=== PATIENT | female | born 1965 | race Caucasian/White ===

== ENCOUNTER 2018-02-07 15:31 | Emergency (ER) | payer OTHER ==
[~2018-02-07] VITALS: Ht 175.3 cm; Wt 136.1 kg
[~2018-02-07 15:31] MED LIST: CALC-385 PO; CIPR500T78 PO; FERR256T PO; GLIM2TAB PO; HYDR-3714 PO; METF-380 PO; METR500T PO; MULT-974 PO; OMEG1CAP51 PO; OMEP40CA36 PO; ONDA8TAB13 PO; TRAM-21 PO; VALS1TAB80 PO
--- OUTSIDE RECORDS SUMMARY | 2018-02-07 15:36 | XMS REPORT ---
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 Active 055112568 Problem PTSD (post-traumatic stress disorder) F43.10 Active 55052000 Problem Social anxiety disorder F40.10 Active 97432475 Problem Major depressive disorder, recurrent episode, moderate F33.1 Active 680670104 Problem Dysthymia F34.1 Active 30067140 Problem Moderate episode of recurrent major depressive disorder F33.1 Active 478378149 Problem Attention deficit disorder (ADD) in adult F98.8 Active 202211105 ALLERGIES Substance Reaction Event Type Date Status Naproxen hives Drug Allergy Jul, Active Ibuprofen hives Drug Allergy Jul, Active Aspirin hives Drug Allergy Jul, Active ENCOUNTERS Encounter Location Date Diagnosis [facility] [id number] [address] Jan, [facility] [address], [place] [address] December, Right elbow pain M25.521 [facility] [address], [place] [address] December, [facility] [id number] [place] [address] December, Right elbow pain M25.521 [facility] [address], [place] [address] December, Pneumonia of right lower lobe due to infectious organism J18.1 [facility] [address] [place] [address] December, Viral upper respiratory tract infection J06.9 [facility] [address] [place] [address] December, BMI 45.0-49.9, adult Z68.42 ; Social anxiety disorder F40.10 ; PTSD (post-traumatic stress disorder) F43.10 and Moderate episode of recurrent major depressive disorder F33.1 [facility] [id number] [place] [address] Oct, Social anxiety disorder F40.10 ; PTSD (post-traumatic stress disorder) F43.10 ; Moderate episode of recurrent major depressive disorder F33.1 and BMI 40.0-44.9, adult Z68.41 [facility] [id number] [place] [address] Oct, [facility] [id number] [place] [address] Oct, BMI 40.0-44.9, adult Z68.41 ; Dermatofibroma D23.9 and Actinic keratosis L57.0 [facility] [address] [place] [address] Oct, Attention deficit disorder (ADD) in adult F98.8 and Major depressive disorder, recurrent episode, moderate F33.1 [facility] [address] [place] [address] Oct, Social anxiety disorder F40.10 ; PTSD (post-traumatic stress disorder) F43.10 ; Moderate episode of recurrent major depressive disorder F33.1 and BMI 40.0-44.9, adult Z68.41 [facility] [address] [place] [address] Oct, Attention deficit disorder (ADD) in adult F98.8 and Major depressive disorder, recurrent episode, moderate F33.1 [place], [place] [address] Aug, [place] [id number] [place] [address] Aug, Dysthymia F34.1 ; BMI 40.0-44.9, adult Z68.41 and Acute non- recurrent maxillary sinusitis J01.00 [facility] [id number] [place] [address] 17 Jul, 2017 Cough R05 and Acute ethmoidal sinusitis, recurrence not specified J01.20 [place] [id number] [place] [address] Jul, Dysthymia F34.1 [place] [address] [place] [address] Jul, [place] [id number] [place] [address] Mar, Dysthymia F34.1 ; Primary osteoarthritis, right ankle and foot M19.071 and Secondary osteoarthritis, 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 IMMUNIZATIONS No Known Immunizations SOCIAL HISTORY Never Assessed REASON FOR VISIT Headache, chest congestion, productive cough, chills/fever started about [facility] days [facility] Activity Details Follow Up prn Reason: VITAL SIGNS Height 70 in 2017-08-16 Weight 305.2 lbs 2017-08-16 Temperature 97.1 degrees Fahrenheit 2017-08-16 Heart Rate 72 bpm 2017-08-16 Respiratory Rate 20 2017-08-16 BMI 43.79 kg/m2 2017-08-16 Blood pressure systolic 120 mmHg 2017-08-16 Blood pressure diastolic 80 mmHg 2017-08-16 MEDICATIONS Medication Instructions Dosage Frequency Start Date End Date Duration Status Fluoxetine HCl 20 mg Orally Once a day 1 tablet in the morning 24h Mar, 90 days Active Zithromax Z-Ashu 250 MG Orally Once a day 2 tablets on the first day, then 1 tablet daily for 4 days 24h Jul, Jul, 5 day(s) Active Fluoxetine HCl 20 Orally Once a day 1 tablet in the morning 24h 30 Active Tramadol HCl 50 mg Orally every 6 hrs 1-2 tablet as needed 6h Active Omeprazole 20 MG Orally Once a day 1 capsule 24h Active ProAir HFA 108 (90 Base) MCG/ACT Inhalation every 6 hrs 2 puffs as needed 6h Jul, Active RESULTS Name Result Date Reference Range INFLUENZA A & B (IN HOUSE) INFLUENZA A neg INFLUENZA B neg Control pos Lot # [id number] Exp date 03/12/19 PROCEDURES Procedure Date Ordered Result Body Site INFLUENZA ASSAY W/OPTIC Aug 16, 2017 INSTRUCTIONS MEDICATIONS ADMINISTERED No Known Medications MEDICAL (GENERAL) HISTORY Type Description Date Medical History depression Medical History Dr. 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
--- OUTSIDE RECORDS SUMMARY | 2018-02-07 15:36 | XMS REPORT ---
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 Active 502447470 Problem PTSD (post-traumatic stress disorder) F43.10 Active 27974028 Problem Social anxiety disorder F40.10 Active 20478621 Problem Major depressive disorder, recurrent episode, moderate F33.1 Active 803423356 Problem Dysthymia F34.1 Active 03734774 Problem Moderate episode of recurrent major depressive disorder F33.1 Active 793029880 Problem Attention deficit disorder (ADD) in adult F98.8 Active 712826069 ALLERGIES Substance Reaction Event Type Date Status Naproxen hives Drug Allergy Mar, Active Ibuprofen hives Drug Allergy Mar, Active Aspirin hives Drug Allergy Mar, Active ENCOUNTERS Encounter Location Date Diagnosis [id number] [facility] [id number] [address] December, [facility] [place] [id number], [place] [address] Oct, Social anxiety disorder F40.10 ; PTSD (post-traumatic stress disorder) F43.10 ; Moderate episode of recurrent major depressive disorder F33.1 and BMI 40.0-44.9, adult Z68.41 [facility] [place] [id number], [place] [address] Oct, [facility] [place] [id number], [place] [address] Oct, BMI 40.0-44.9, adult Z68.41 ; Dermatofibroma D23.9 and Actinic keratosis L57.0 [facility] [place] [id number] [place] [address] 02 Oct, 2017 Attention deficit disorder (ADD) in adult F98.8 and Major depressive disorder, recurrent episode, moderate F33.1 [place] [address] [address] Oct, Social anxiety disorder F40.10 ; PTSD (post-traumatic stress disorder) F43.10 ; Moderate episode of recurrent major depressive disorder F33.1 and BMI 40.0-44.9, adult Z68.41 [place] [address] 12 Oct, 2017 Attention deficit disorder (ADD) in adult F98.8 and Major depressive disorder, recurrent episode, moderate F33.1 [place] [address] [address] 04 Aug, 2017 [place] [id number] [place] [address] 02 Aug, 2017 Dysthymia F34.1 ; BMI 40.0-44.9, adult Z68.41 and Acute non- recurrent maxillary sinusitis J01.00 [facility] [id number] [place] [address] 17 Jul, 2017 Cough R05 and Acute ethmoidal sinusitis, recurrence not specified J01.20 [facility] [place] [id number] [place] [address] 13 Jul, 2017 Dysthymia F34.1 [facility] [place] [address] [address] Jul, [place] [id number] [place] [address] Mar, Dysthymia F34.1 ; Primary osteoarthritis, right ankle and foot M19.071 and Secondary osteoarthritis, 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 Chung's office---Rachel, would like to talk about depression medications PLAN OF CARE Activity Details Follow Up 4 Weeks Reason: VITAL SIGNS Height 70 in 2017-04-28 Weight 302 lbs 2017-04-28 Temperature 98.4 degrees Fahrenheit 2017-04-28 Heart Rate 90 bpm 2017-04-28 Respiratory Rate 20 2017-04-28 BMI 43.33 kg/m2 2017-04-28 Blood pressure systolic 110 mmHg 2017-04-28 Blood pressure diastolic 80 mmHg 2017-04-28 MEDICATIONS Medication Instructions Dosage Frequency Start Date End Date Duration Status Omeprazole 20 MG Orally Once a day 1 capsule 24h Active Fluoxetine HCl 20 mg Orally Once a day 1 tablet in the morning 24h Mar, 30 day(s) Active Tramadol HCl 50 mg Orally every 6 hrs 1-2 tablet as needed 6h Active RESULTS No Results PROCEDURES No Known procedures INSTRUCTIONS MEDICATIONS ADMINISTERED No Known Medications MEDICAL [...]
--- OUTSIDE RECORDS SUMMARY | 2018-02-07 15:36 | XMS REPORT ---
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 Active 966372918 Problem PTSD (post-traumatic stress disorder) F43.10 Active 65103890 Problem Social anxiety disorder F40.10 Active 78004361 Problem Major depressive disorder, recurrent episode, moderate F33.1 Active 835226199 Problem Dysthymia F34.1 Active 17096356 Problem Moderate episode of recurrent major depressive disorder F33.1 Active 627721783 Problem Attention deficit disorder (ADD) in adult F98.8 Active 445795170 ALLERGIES No Information ENCOUNTERS Encounter Location Date Diagnosis [facility] [address] [place] [address] Jan, [facility] [id number] [place] [address] 8[address] December, Right elbow pain M25.521 [facility] [id number] [place] [address] 71705- [address] December, [facility] [address] [place] [address] 9[address]12- [address]597 December, Right elbow pain M25.521 [facility] [address] [place] [address] -[address] December, Pneumonia of right lower lobe due to infectious organism J18.1 [facility] [address] [place] [address] December, Viral upper respiratory tract infection J06.9 [place] [address] [address] December, BMI 45.0-49.9, adult Z68.42 ; Social anxiety disorder F40.10 ; PTSD (post-traumatic stress disorder) F43.10 and Moderate episode of recurrent major depressive disorder F33.1 [place] [id number] [place] [address] Oct, Social anxiety disorder F40.10 ; PTSD (post-traumatic stress disorder) F43.10 ; Moderate episode of recurrent major depressive disorder F33.1 and BMI 40.0-44.9, adult Z68.41 [place] [id number] [place] [address] 03973- [address] Oct, [place] [id number] [place] [address] 80076- 69[address] Oct, BMI 40.0-44.9, adult Z68.41 ; Dermatofibroma D23.9 and Actinic keratosis L57.0 [place] [id number] [place] [address] 76913- [address] Oct, Attention deficit disorder (ADD) in adult F98.8 and Major depressive disorder, recurrent episode, moderate F33.1 [place] [address] [place] [address] 45962- 84[address] Oct, Social anxiety disorder F40.10 ; PTSD (post-traumatic stress disorder) F43.10 ; Moderate episode of recurrent major depressive disorder F33.1 and BMI 40.0-44.9, adult Z68.41 [place] [id number] [place] [address] 8[address]34- 30[address] Oct, Attention deficit disorder (ADD) in adult F98.8 and Major depressive disorder, recurrent episode, moderate F33.1 [place] [id number] [place] [address] 73824- [address] Aug, [place] [address] [address] Aug, Dysthymia F34.1 ; BMI 40.0-44.9, adult Z68.41 and Acute non- recurrent maxillary sinusitis J01.00 [facility] [address] [address] 17 Jul, 2017 Cough R05 and Acute ethmoidal sinusitis, recurrence not specified J01.20 [facility] [address] [address] 13 Jul, 2017 Dysthymia F34.1 [place] [id number] [place] [address] 79268- 8725 Jul, [place] [address] [place] [address] 07674- [address] Mar, Dysthymia F34.1 ; Primary osteoarthritis, right ankle and foot M19.071 and Secondary osteoarthritis, 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
[2018-02-07] MEDS ORDERED: morphine INJ 10 MG/ML 1ML (SYR OR VIAL) IM STA (17:06)
--- NOTE | 2018-02-07 17:08 | ED Fall/Injury ---
General Chief Complaint: Trauma-Non Activation Stated Complaint: FALL/L CHEEK PAIN Nursing Triage Note: TO ROOM REPORTS THAT 1HR COOK LARDER TRIPPED OVER A W/C RAMP AND HIT HER L CHEEK Source: patient Exam Limitations: no limitations (SHARMIN MCFADDEN MD) History of Present Illness Date Seen by Provider: Feb 07, 2018 Time Seen by Provider: 16:57 Initial Comments Here with report of fall approximately an hour prior to arrival when she tripped over a wheelchair ramp. She fell and hit her left cheek. Denies loss of consciousness. Denies other injury. Patient does have pain also to the right elbow from a fall a couple weeks ago. Apparently that was x-rayed but has not gotten better she reports she has limited range of motion to the elbow. Has not taken anything for pain. Mild swelling noted. No vision problems. Occurred: just prior to arrival Severity: moderate Injuries/Pain Location: face Context: tripped Loss of Consciousness: no loss of consciousness Modifying Factors: Improves With Immobilization Associated Symptoms (Fall): No Abdominal Pain, No Chest Pain, No Headache, No Muscle Spasms, No Nausea/Vomiting, No Shortness of Air, No Trouble Walking ( SHARMIN MCFADDEN MD) Allergies and Home Medications Allergies Coded Allergies: ibuprofen (Unverified Allergy, Unknown, 04/02/14) Home Medications Calcium Carbonate 1.25 G Tablet, 1.25 G PO DAILY, (Reported) Docosahexanoic Acid/Epa 1 Cap Capsule, 1 CAP PO DAILY, (Reported) Ferrous Gluconate 256 Mg Tablet, 256 MG PO DAILY, (Reported) Metronidazole 500 Mg Tab, 1 EACH PO TID Prescribed by: TRINITY KINCAID on 01/04/151719 Multivitamin 1 Each Tablet, 1 EACH PO DAILY, (Reported) Omeprazole 40 Mg Capsule.dr, 40 MG PO DAILY, (Reported) Tramadol Hcl 50 Mg Tablet, 100 MG PO Q12H PRN for PAIN Prescribed by: TRINITY KINCAID on 01/04/151719 Patient Home Medication List Home Medication List Reviewed: Yes (SHARMIN MCFADDEN MD) Home Medication List Reviewed: Yes (WES ALBERT) Review of Systems Constitutional: see HPI; No chills, No fever Eyes: See HPI; Denies Pain, Denies Vision Changes Ears, Nose, Mouth, Throat: see HPI; denies nose pain, denies epistaxis, denies mouth pain, denies loose teeth Respiratory: no symptoms reported Cardiovascular: no symptoms reported Gastrointestinal: no symptoms reported Musculoskeletal: see HPI, joint pain, muscle stiffness Skin: see HPI, change in color, lesions (small split in the lip.) (SHARMIN MCFADDEN MD) Past Lmisrhl-Kbymrv-Zukqzd Hx Past Med/Social Hx: Reviewed Nursing Past Med/Soc Hx (SHARMIN MCFADDEN MD) Patient Social History Alcohol Use: Denies Use Recreational Drug Use: No Smoking Status: Never a Smoker Recent Foreign Travel: No Contact w/Someone Who Travel: No Recent Infectious Disease Expo: No (SHARMIN MCFADDEN MD) Immunizations Up To Date Tetanus Booster (TDap): More than 5yrs (SHARMIN MCFADDEN MD) Past Medical History Surgeries: Yes (ACL RECONSTRUCTION R KNEE) Respiratory: Yes Sleep Apnea Cardiac: Yes Neurological: No Gastrointestinal: No Musculoskeletal: No Endocrine: Yes Diabetes, Non-Insulin dep Cancer: Yes Cervical Psychosocial: No Integumentary: No Blood Disorders: No Adverse Reaction/Blood Tranf: No (SHARMIN MCFADDEN MD) Family Medical History Reviewed Nursing Family Hx (SHARMIN MCFADDEN MD) Physical Exam Vital Signs Vital Signs - First Documented 02/07/18 15:40 Temp 97.0 Pulse 91 Resp 18 B/P (MAP) 151/76 (101) Pulse Ox 99 O2 Delivery Room Air (WES ALBERT) Vital Signs Capillary Refill : Less Than 3 Seconds (SHARMIN MCFADDEN MD) General Appearance: WD/WN, no apparent distress HEENT: PERRL/EOMI, TMs normal, pharynx normal, other (tenderness over the left cheek without bony mobility. Mild swelling and erythema noted. There is a small, superficial laceration to the upper lip right of midline.) Neck: non-tender, full range of motion, supple, normal inspection Cardiovascular: regular rate, rhythm, no murmur Respiratory: lungs clear, normal breath sounds Gastrointestinal: non tender, soft Back: normal inspection, no CVA tenderness, no vertebral tenderness Extremities: no pedal edema, other (mild tenderness to the mid lateral aspect of the right lower leg where there is a small bruise. No bony mobility. Patient able to walk without difficulty. Has decreased range of motion to the right elbow on supination and pronation but has good flexion and extension.) Neurologic/Psychiatric: alert, oriented x 3 Skin: warm/dry, ecchymosis, other (see above) (SHARMIN MCFADDEN MD) Paradox Coma Score Best Eye Response: (4) Open Spontaneously Best Verbal Response: (5) Oriented Best Motor Response: (6) Obeys Commands (SHARMIN MCFADDEN MD) Progress/Results/Core Measures Results/Orders Vital Signs/I&O 02/07/18 15:40 Temp 97.0 Pulse 91 Resp 18 B/P (MAP) 151/76 (101) Pulse Ox 99 O2 Delivery Room Air (WES ALBERT) Blood Pressure Mean: 101 Progress Progress Note : Progress Note Seen and evaluated. CT head and face ordered. X-ray right elbow ordered. Morphine 8 mg IM for pain. Monitor patient. (SHARMIN MCFADDEN MD) Diagnostic Imaging Diagonstic Imaging: Xray Plain Films/CT/US/NM/MRI: elbow [facility] [place] NAME: CALVIN LARSEN [facility] REC#: [id number] PT STATUS: REG ER : 1965 PHYSICIAN: SHARMIN MCFADDEN MD ADMIT DATE: 02/07/18/ER Draft Date of Exam:02/07/18 ELBOW, RIGHT, 3 VIEWS INDICATION: Tripped over wheelchair ramp, right elbow pain. TECHNIQUE: Three views of the right elbow. CORRELATION STUDY: None. FINDINGS: There is deformity at the right radial neck suspect for slightly impacted otherwise nondisplaced fracture. The distal humerus and proximal ulna appear intact. IMPRESSION: Findings consistent with a slightly impacted right radial neck fracture. Dictated on workstation # [id number] Dict: 02/07/18 1809 Trans: 02/07/18 182 [facility] [id number] Interpreted by: MEL SUAREZ DO Electronically signed by: Reviewed: Reviewed by Me Diagonstic Imaging: CT Plain Films/CT/US/NM/MRI: facial bones, head Comments [facility] [place] NAME: CALVIN LARSEN [facility] REC#: [id number] PT STATUS: REG ER : 1965 PHYSICIAN: SHARMIN MCFADDEN MD ADMIT DATE: 02/07/18/ER Draft Date of Exam:02/07/18 CT HEAD/MAXILLOFACIAL WO PROCEDURE: CT head and maxillofacial without contrast. TECHNIQUE: Multiple contiguous axial images were obtained through the head and facial bones without the use of intravenous contrast. INDICATION: Tripped over a wheelchair ramp, hit left cheek and right elbow. Pain. CORRELATION STUDY: None. CT HEAD FINDINGS: The ventricles and sulci are unremarkable. Normal wharton-white differentiation. No abnormal areas of decreased attenuation to suggest edema. No intracranial hemorrhage. Basilar cisterns are maintained. The bony calvarium appears unremarkable. There is a small air-fluid level within the sphenoid sinus present. IMPRESSION: Negative for acute traumatic intracranial abnormality. CT MAXILLOFACIAL FINDINGS: There is no acute displaced maxillofacial fracture deformity. Nasal bones are intact. Maxillary sinus bullard maintained. The orbital bullard, including floors, are intact. Zygomatic arch and pterygoid plate are intact. The globes and retro-orbital structures appear symmetric. There are scattered areas of mucosal thickening involving the ethmoid air cells, bilateral maxillary sinuses and sphenoid sinus. Mastoid air cells, external auditory canals and middle ear cavities are unremarkable. Temporomandibular joints are maintained. IMPRESSION: 1. Negative for acute displaced maxillofacial fracture deformity. 2. Sinusitis. Dictated on workstation # [id number] Dict: 02/07/18 1800 Trans: 02/07/18 1822 [facility] [id number] Interpreted by: MEL SUAREZ DO Electronically signed by: Reviewed: Reviewed by Ga (WES ALBERT) Departure Impression Primary Impression: Fall Qualified Codes: W19.XXXA - Unspecified fall, initial encounter Additional Impression: Fracture of radial neck, right, closed Qualified Codes: S52.134A - Nondisplaced fracture of neck of right radius, initial encounter for closed fracture Disposition: 01 HOME, SELF-CARE Condition: Stable Departure-Patient Inst. Decision time for Depature: 18:49 (WES ALBERT) Referrals: [facility] [place] (PCP) Primary Care Physician MELY ABDULLAHI (Family) Primary Care Physician LAYLA GOYAL MD Patient Instructions: Elbow Fracture (DC), Minor Head Injury (DC) Add. Discharge Instructions: Apply ice to your contusion of the head as well as your right elbow as needed for swelling or pain for 20 minutes every 4 hours as needed for the first 3 days. You can also use 1000 g of Tylenol, 800 mg of ibuprofen either or every 8 hours. If this does not help you can use 50 mg of tramadol every 6 hours. Make an appointment tomorrow to follow up with Dr. Goyal or the orthopedic surgeon of your choice to follow up your elbow fracture. Wear the sling. All discharge instructions reviewed with patient and/or family. Voiced understanding. Scripts Tramadol HCl (Tramadol HCl) 50 Mg Tablet 50 MG PO Q6H PRN for PAIN, #20 TAB 0 Refills Prov: WES ALBERT 02/07/18 Work/School Note: Work Release Form Date Seen in the Emergency Department: Feb 07, 2018 Return to Work: Feb 08, 2018 Restrictions: Need Release from Doctor Other Restrictions Listed Below: For the next week if any concussion symptom of headache, nausea, dizziness, Restrictions: Discontinue work for 24 hours, take Tylenol, water and get sleep. Copy Copies To 1: MALCOM HAMMONDS DO; LAYLA GOYAL MD, TIMOTHY D MD Feb 07, 2018 17:08 WES ALBERT Feb 07, 2018 18:44
--- NOTE | 2018-02-07 18:22 | Diagnostic Imaging Report ---
PROCEDURE: CT head and maxillofacial without contrast. TECHNIQUE: Multiple contiguous axial images were obtained through the head and facial bones without the use of intravenous contrast. INDICATION: Tripped over a wheelchair ramp, hit left cheek and right elbow. Pain. CORRELATION STUDY: None. CT HEAD FINDINGS: The ventricles and sulci are unremarkable. Normal wharton-white differentiation. No abnormal areas of decreased attenuation to suggest edema. No intracranial hemorrhage. Basilar cisterns are maintained. The bony calvarium appears unremarkable. There is a small air-fluid level within the sphenoid sinus present. IMPRESSION: Negative for acute traumatic intracranial abnormality. CT MAXILLOFACIAL FINDINGS: There is no acute displaced maxillofacial fracture deformity. Nasal bones are intact. Maxillary sinus bullard maintained. The orbital bullard, including floors, are intact. Zygomatic arch and pterygoid plate are intact. The globes and retro-orbital structures appear symmetric. There are scattered areas of mucosal thickening involving the ethmoid air cells, bilateral maxillary sinuses and sphenoid sinus. Mastoid air cells, external auditory canals and middle ear cavities are unremarkable. Temporomandibular joints are maintained. IMPRESSION: 1. Negative for acute displaced maxillofacial fracture deformity. 2. Sinusitis. Dictated by: Dictated on workstation # [id number]
--- NOTE | 2018-02-07 18:28 | Diagnostic Imaging Report ---
INDICATION: Tripped over wheelchair ramp, right elbow pain. TECHNIQUE: Three views of the right elbow. CORRELATION STUDY: None. FINDINGS: There is deformity at the right radial neck suspect for slightly impacted otherwise nondisplaced fracture. The distal humerus and proximal ulna appear intact. IMPRESSION: Findings consistent with a slightly impacted right radial neck fracture. Dictated by: Dictated on workstation # [id number]
[2018-02-07] MEDS ORDERED: TRAM50TA2 PO (18:51)
[2018-02-07 18:59] VITALS: BP 133/81
== END 2018-02-07 18:58 | disposition home or self-care (01) ==
LOC: EDUNIT# 15:31 → ER 15:33
DX: S52.131A Displaced fracture of neck of right radius, initial encounter for closed fracture (principal); G47.30 Sleep apnea, unspecified; E11.9 Type 2 diabetes mellitus without complications; R40.2142 Coma scale, eyes open, spontaneous, at arrival to emergency department; R40.2252 Coma scale, best verbal response, oriented, at arrival to emergency department; R40.2362 Coma scale, best motor response, obeys commands, at arrival to emergency department; Z85.41 Personal history of malignant neoplasm of cervix uteri; Z88.6 Allergy status to analgesic agent; W01.0XXA Fall on same level from slipping, tripping and stumbling without subsequent striking against object, initial encounter
CPT/HCPCS: 70450; 70486; 73080; 96372

== ENCOUNTER 2018-03-15 08:42 | Outpatient (RCR) | payer OTHER ==
[~2018-03-15 08:42] MED LIST changes: +TRAM50TA2 PO
== END 2018-03-30 | disposition home or self-care (01) ==
LOC: CARD 08:42
PROVIDERS: ATTEND Nurse Practitioner Community Health
DX: R29.6 Repeated falls (principal)
CPT/HCPCS: 93225; 93226

== ENCOUNTER → 2018-03-17 | Outpatient (CLI) | payer OTHER ==
[~2018-03-17] MED LIST changes: +GADOBUTROL 15 MMOL/15 ML (GADAVIST) VIAL IV ONE
--- NOTE | 2018-03-17 10:27 | Diagnostic Imaging Report ---
PROCEDURE: MR imaging of the brain with and without contrast. TECHNIQUE: Multiplanar, multisequence MR imaging of the brain was performed with and without contrast. INDICATION: Recent falls and head injuries. COMPARISON: No prior studies are available for comparison. FINDINGS: The ventricles and sulci are within normal limits. No sulcal effacement or midline shift is seen. No acute intra-axial or extra-axial hemorrhage is identified. No diffusion restriction is identified to suggest acute ischemia. The normal expected flow-voids within the carotid siphons are seen. No abnormal enhancement is identified following contrast administration. Corpus callosum is unremarkable. The sella and parasellar structures are unremarkable. Mucous retention cyst or polyp left maxillary sinus is seen. IMPRESSION: Essentially unremarkable pre-and postcontrast MRI of the brain. Dictated by: Dictated on workstation # [id number]
== END ==
LOC: RAD 08:34
PROVIDERS: ATTEND Nurse Practitioner Community Health
DX: S09.90XA Unspecified injury of head, initial encounter (principal); W19.XXXA Unspecified fall, initial encounter
CPT/HCPCS: 70553

== ENCOUNTER → 2018-03-17 | Outpatient (CLI) | payer OTHER ==
[~2018-03-17] MED LIST changes: -GADOBUTROL 15 MMOL/15 ML (GADAVIST) VIAL IV ONE
== END ==
LOC: CARD 08:33
PROVIDERS: ATTEND Nurse Practitioner Community Health
DX: R42 Dizziness and giddiness (principal); R29.6 Repeated falls; I07.1 Rheumatic tricuspid insufficiency
CPT/HCPCS: 93306